=== PATIENT | male | born 1990 | race Caucasian/White ===

== ENCOUNTER 2016-06-04 11:09 | Emergency (ER) | payer SELFPAY ==
[~2016-06-04] VITALS: Wt 89.0 kg
--- NOTE | 2016-06-04 12:32 | RADRPT ---
PROCEDURE: XR Abdomen. CLINICAL INDICATION: Abdominal pain. No bowel movement. TECHNIQUE: Supine views of the abdomen were obtained. COMPARISON: None. FINDINGS: The bowel gas pattern is normal. There is no evidence of obstruction. No free intraperitoneal air i s seen. There are no abnormal calcifications overlying the urinary tracts. The osseous structures a re unremarkable. IMPRESSION: Nonobstructive bowel gas pattern. RPTAT: HPNM Physician Justice Date Time Electronically viewed and signed by Physician Justice on 06/04/2016 12:32 /
[2016-06-04 12:37] LABS: ADD SCAN DIFF NO
[2016-06-04 12:38] LABS: BASOPHILS % 0.5 % (0.0-2.0); EOSINOPHILS # 0.1 10^3/ul (0.0-0.5); EOSINOPHILS % 2.4 % (0.0-7.0); HEMATOCRIT 48.1 % (42.0-52.0); HEMOGLOBIN 16.8 g/dl (14.0-18.0); LYMPHOCYTES # 1.1 10^3/ul (0.8-2.9); LYMPHOCYTES % 29.6 % (15.0-51.0); MEAN CORPUSCULAR HEMOGLOBIN 29.7 pg (29.0-33.0); MEAN CORPUSCULAR HGB CONC 34.9 g/dl (32.0-37.0); MEAN CORPUSCULAR VOLUME 85.1 fl (82.0-101.0); MEAN PLATELET VOLUME 9.1 fl (7.4-10.4); MONOCYTE # 0.6 10^3/ul (0.3-0.9); MONOCYTES % 15.5 % (0.0-11.0); NEUTROPHIL # 1.9 10^3/ul (1.6-7.5); NEUTROPHILS % 51.7 % (39.0-77.0); PLATELET COUNT 237 10^3/UL (140-415); RED BLOOD COUNT 5.65 10^6/ul (4.70-6.10); RED CELL DISTRIBUTION WIDTH 11.8 % (11.5-14.5); WHITE BLOOD COUNT 3.7 10^3/ul (4.8-10.8)
--- NOTE | 2016-06-04 12:40 | ERD ---
ER Documentation Chief Complaint Date/Time DATE: 06/04/16 TIME: 12:39 Chief Complaint ABD DISCOMFORT, CONSTIPATION X4 DAYS, NO N/V HPI This 25-year-old male who presents the emergency department today complaining of some abdominal pain for the past couple of days. He is unsure if he is constipated. States he is unsure of his last bowel movement. States that he does use marijuana, as well as occasionally meth and cocaine.Denies any nausea vomiting, fevers or chills. ROS All systems reviewed and are negative except as per history of present illness. Medications Home Meds Active Scripts Acetaminophen* (Tylophen*) 500 Mg Capsule, 1 CAP PO Q6H Y for PAIN AND OR ELEVATED TEMP, #30 CAP Prov:TENISHA SERRANO PA-C 06/04/16 Docusate Sodium* (Colace*) 100 Mg Capsule, 100 MG PO TID, #30 CAP Prov:TENISHA SERRANO PA-C 06/04/16 Magnesium Citrate* (Magnesium Citrate*) 296 Ml Solution, 296 ML PO ONCE, #1 BOTTLE Prov:TENISHA SERRANO PA-C 06/04/16 Ibuprofen* (Motrin*) 600 Mg Tab, 600 MG PO Q6, #30 TAB Prov:TENISHA SERRANO PA-C 06/04/16 Allergies Allergies: Coded Allergies: No Known Drug Allergies (Verified Allergy, Unknown, 06/04/16) PMhx/Soc Medical and Surgical Hx: pt denies Medical Hx, pt denies Surgical Hx Hx Alcohol Use: No Hx Substance Use: Yes Hx Tobacco Use: No Smoking Status: Never smoker Physical Exam Vitals Vital Signs Date Time Temp Pulse Resp B/P Pulse Ox O2 Delivery O2 Flow Rate FiO2 06/04/16 11:12 98.4 118 18 148/68 99 Physical Exam Const: Pacing around the exam room, no acute distress Head: Atraumatic Eyes: Normal Conjunctiva ENT: Normal External Ears, Nose and Mouth. Neck: Full range of motion..~ No meningismus. Resp: Clear to auscultation bilaterally Cardio: Regular rate and rhythm, no murmurs Abd: Soft, diffuse abdominal tenderness worse periumbilical epigastric and right upper quadrant non distended. Normal bowel sounds Skin: No petechiae or rashes Back: No midline or flank tenderness Ext: No cyanosis, or edema Neur: Awake and alert Psych: Normal Mood and Affect Result Diagram: 06/04/16 1210 06/04/16 1210 Results 24 hrs Laboratory Tests Test 06/04/16 12:10 06/04/16 12:58 White Blood Count 3.710^3/ul Red Blood Count 5.6510^6/ul Hemoglobin 16.8g/dl Hematocrit 48.1% Mean Corpuscular Volume 85.1fl Mean Corpuscular Hemoglobin 29.7pg Mean Corpuscular Hemoglobin Concent 34.9g/dl Red Cell Distribution Width 11.8% Platelet Count 27117^3/UL Mean Platelet Volume 9.1fl Neutrophils % 51.7% Lymphocytes % 29.6% Monocytes % 15.5% Eosinophils % 2.4% Basophils % 0.5% Nucleated Red Blood Cells % 0.0/100WBC Neutrophils # 1.910^3/ul Lymphocytes # 1.110^3/ul Monocytes # 0.610^3/ul Eosinophils # 0.110^3/ul Basophils # 0.010^3/ul Nucleated Red Blood Cells # 0.010^3/ul Sodium Level 139mmol/L Potassium Level 3.4mmol/L Chloride Level 100mmol/L Carbon Dioxide Level 27mmol/L Anion Gap 15 Blood Urea Nitrogen 11mg/dl Creatinine 1.17mg/dl Glucose Level 78mg/dl Calcium Level 9.8mg/dl Total Bilirubin 1.2mg/dl Direct Bilirubin 0.00mg/dl Indirect Bilirubin 1.2mg/dl Aspartate Amino Transf (AST/SGOT) 37IU/L Alanine Aminotransferase (ALT/SGPT) 31IU/L Alkaline Phosphatase 94IU/L Total Protein 9.1g/dl Albumin 4.8g/dl Globulin 4.30g/dl Albumin/Globulin Ratio 1.11 Lipase 57U/L Bedside Urine pH (LAB) 6.0 Bedside Urine Protein (LAB) Negative Bedside Urine Glucose (UA) Negative Bedside Urine Ketones (LAB) 2+ Bedside Urine Blood Trace-intact Bedside Urine Nitrite (LAB) Negative Bedside Urine Leukocyte Esterase (L Negative DIAGNOSTIC IMAGING REPORT Patient: RODOLFO MUÑIZ : 1990 Age: 25 Sex: M MR #: [id number] DOS: 06/04/16 0000 Ordering MD: TENISHA SERRANO PA-C Location: [facility] Room/Bed: PROCEDURE: XR Abdomen. CLINICAL INDICATION: Abdominal pain. No bowel movement. TECHNIQUE: Supine views of the abdomen were obtained. COMPARISON: None. FINDINGS: The bowel gas pattern is normal. There is no evidence of obstruction. No free intraperitoneal air is seen. There are no abnormal calcifications overlying the urinary tracts. The osseous structures are unremarkable. IMPRESSION: Nonobstructive bowel gas pattern. RPTAT: HPNM Physician Justice Date Time Electronically viewed and signed by Physician Justice on 06/04/2016 12 :32 / CC: TENISHA SERRANO PA-C Procedures/MDM This 25-year-old male who presents the emergency department today complaining of some abdominal discomfort for the past 4 days. Patient was unsure if last time he had a bowel movement. Patient was pacing around the exam room however he did not appear to be in any acute distress. Patient had nonspecific abdominal exam. He had nonspecific abdominal tenderness that was diffuse and really no specific tenderness at McBurney's and no rebound tenderness. Majority of his tenderness appear to be in his epigastric and right upper quadrant region. I discussed the patient with Dr. Lopez and he saw and evaluated the patient recommended laboratory work, KUB and a UA Laboratory work shows a mildly decreased while blood cell count. Mildly increased monocyte he is not anemic. Platelets are within normal limits. Potassium is mildly decreased otherwise electrolytes are within normal limits. Liver functions within normal limits. Lipase is within normal limits per UA is negative for infection. KUB shows a nonobstructive bowel gas pattern. There is no free air seen. No evidence of obstruction. Patient has some abdominal pain of uncertain etiology at this time however may be related to constipation versus viral illness as his monocytes are elevated. Low suspicion for acute surgical abdomen at this time. Patient is afebrile and otherwise well-appearing. His no elevated white blood cell count. Patient has a history of drug use and abuse and I did offer him Tylenol or Motrin for pain however he has declined at this time. Patient was instructed to stop abusing drugs. Patient will be given a prescription for Tylenol, Motrin , mag citrate and Colace. Discussed the laboratory findings as well as x-ray with Dr. Lopez and he is in agreement with the plan. Departure Diagnosis: Primary Impression: Abdominal pain Abdominal location: generalized Qualified Code: R10.84 - Generalized abdominal pain Condition: Fair TENISHA SERRANO PA-C Jun 04, 2016 12:40
[2016-06-04 12:50] LABS: ALBUMIN 4.8 g/dl (3.3-4.9); ALBUMIN/GLOBULIN RATIO 1.11; BILIRUBIN,INDIRECT 1.2 mg/dl (0-1.1); BILIRUBIN,TOTAL 1.2 mg/dl (0.2-1.3); CALCIUM 9.8 mg/dl (8.4-10.2); CREATININE 1.17 mg/dl (0.61-1.24); POTASSIUM 3.4 mmol/L (3.5-5.1); TOTAL PROTEIN 9.1 g/dl (6.1-8.1)
[2016-06-04 12:58] LABS: URINE BLOOD (Dip) POC Trace-intact (NEGATIVE)
[2016-06-04] MEDS ORDERED: IBUP-1542 PO (13:09)
[2016-06-04] MEDS ORDERED: MAGN296S40 PO (13:10)
[2016-06-04] MEDS ORDERED: DOCU-144 PO (13:10)
[2016-06-04] MEDS ORDERED: ACET500C5 PO (13:11)
== END 2016-06-04 13:25 | disposition home or self-care (01) ==
LOC: FTE 11:09
DX: R10.84 Generalized abdominal pain (principal)
CPT/HCPCS: 74000; 80053; 81003; 83690; 85025

== ENCOUNTER 2018-02-08 01:01 | Emergency (ER) | END 2018-02-08 08:00 | disposition home or self-care (01) ==